=== PATIENT | female | born 1990 | race Caucasian/White ===

== ENCOUNTER 2021-11-18 19:30 | Inpatient (IN) | payer OTHER ==
[2021-11-18] MEDS ORDERED: DINOPROSTONE 10 MG VAGINAL SUPPOSITORY VG ONE (20:20)
[2021-11-18] MEDS: DEXTROSE 5%-LACTATED RINGERS 1,000 ML IV SCH (23:00)
[2021-11-18 23:22] VITALS: BMI 34.0
[2021-11-19] MEDS ORDERED: OXYTOCIN 30 UNITS in 0.9% NS 30 UNIT/500 ML INFUS.BAG IVPB ONE (05:52)
[2021-11-19] MEDS ORDERED: OXYTOCIN 30 UNITS in 0.9% NS 30 UNIT/500 ML INFUS.BAG IVPB SCH (06:00)
[2021-11-19] MEDS: DEXTROSE 5%-LACTATED RINGERS 1,000 ML IV SCH ×2 (06:00→14:00)
[2021-11-19] MEDS ORDERED: CITRIC ACID/SODIUM CITRATE 30 ML UNIT-DOSE CUP PO ONE (14:59)
[2021-11-19] MEDS ORDERED: ELECTROLYTE-148 SOLN 1,000 ML IV SCH (15:00)
[2021-11-19] MEDS ORDERED: morphine SULFATE/PF 1 MG/2 ML (2cc Syringe - QUVA) ONE (15:09)
[2021-11-19] MEDS ORDERED: PROPOFOL 20 ML ONE ×2 (15:49)
[2021-11-19] MEDS ORDERED: ePHEDrine SULFATE 50 MG/1 ML AMPULE ONE (15:49)
[2021-11-19] MEDS ORDERED: METHYLERGONOVINE MALEATE 0.2 MG/1 ML AMP IM PRN (16:24)
[2021-11-19] MEDS ORDERED: FAMOTIDINE 20 MG TABLET PO PRN (16:33)
[2021-11-19] MEDS: OXYTOCIN 20 UNITS in 0.9% NS 20 UNIT/1,000 ML INFUS.BAG IV SCH (19:10)
[2021-11-19] MEDS: IBUPROFEN 600 MG TABLET (FP) PO SCH (22:28)
[2021-11-19] MEDS: SENNOSIDES/DOCUSATE COMBO (SENNA PLUS) TABLET (UD) PO PRN (22:31)
[2021-11-19] MEDS ORDERED: IBUPROFEN 600 MG TABLET (FP) PO SCH (23:00)
[2021-11-19] MEDS ORDERED: ACETAMINOPHEN 500 MG TABLET (FP) PO SCH (23:00)
[2021-11-19] MEDS: ACETAMINOPHEN 1000 MG/100 ML BAG IVPB SCH (23:40)
[2021-11-20] MEDS: OXYTOCIN 20 UNITS in 0.9% NS 20 UNIT/1,000 ML INFUS.BAG IV SCH (03:30)
[2021-11-20] MEDS: IBUPROFEN 600 MG TABLET (FP) PO SCH ×3 (04:52→16:54)
[2021-11-20] MEDS: ACETAMINOPHEN 1000 MG/100 ML BAG IVPB SCH ×2 (05:38→13:25)
[2021-11-20 09:24] LABS: BASO % 0.5 % (0-2.0); EOS % 1.1 % (0-4.5); HEMATOCRIT 31.5 % (32.4-45.2); HEMOGLOBIN 11.2 GM/dL (10.7-15.3); LYMPH % 17.1 % (8-40); MCH 31.5 pg (25.7-33.7); MCHC 35.6 g/dl (32.0-36.0); MEAN CELL VOLUME 88.5 fl (80-96); MONO % 7.2 % (3.8-10.2); NEUT % 74.1 % (42.8-82.8); PLATELET COUNT 107 10^3/uL (134-434); RBC 3.56 M/mm3 (3.60-5.2); WHITE BLOOD COUNT 7.9 K/mm3 (4.0-10.0)
[2021-11-20 09:46] LABS: BLOOD UREA NITROGEN 8.2 mg/dL (7-18)
[2021-11-20 09:49] LABS: CREATININE 0.4 mg/dL (0.55-1.3)
[2021-11-20 09:50] LABS: BILIRUBIN,TOTAL 0.6 mg/dL (0.2-1); TOT PROT 4.7 g/dl (6.4-8.2)
[2021-11-20 09:53] LABS: ALBUMIN 2.2 g/dl (3.4-5.0)
[2021-11-20] MEDS: PRENATAL VITAMINS W/ FOLIC ACID TABLET (FP) PO SCH (10:11)
[2021-11-20] MEDS ORDERED: BISACODYL 10 MG SUPP.RECT RC PRN (16:24)
[2021-11-20] MEDS ORDERED: IBUPROFEN 600 MG TABLET (FP) PO PRN (17:00)
[2021-11-20] MEDS: SIMETHICONE 80 MG TAB.CHEW (FP) PO PRN (20:45)
[2021-11-20] MEDS: SENNOSIDES/DOCUSATE COMBO (SENNA PLUS) TABLET (UD) PO PRN (20:45)
[2021-11-20] MEDS: IBUPROFEN 600 MG TABLET (FP) PO PRN (20:46)
[2021-11-21] MEDS ORDERED: ACETAMINOPHEN 500 MG TABLET (FP) PO PRN (00:01)
[2021-11-21] MEDS: IBUPROFEN 600 MG TABLET (FP) PO PRN ×2 (05:57→20:33)
[2021-11-21] MEDS: SIMETHICONE 80 MG TAB.CHEW (FP) PO PRN ×3 (05:58→20:33)
[2021-11-21] MEDS: PRENATAL VITAMINS W/ FOLIC ACID TABLET (FP) PO SCH (09:33)
[2021-11-21] MEDS: oxyCODONE HCL 5 MG TABLET PO PRN ×3 (12:54→22:29)
[2021-11-21] MEDS: SENNOSIDES/DOCUSATE COMBO (SENNA PLUS) TABLET (UD) PO PRN (22:29)
[2021-11-22] MEDS: IBUPROFEN 600 MG TABLET (FP) PO PRN (05:46)
[2021-11-22] MEDS: PRENATAL VITAMINS W/ FOLIC ACID TABLET (FP) PO SCH (09:32)
[2021-11-22 09:43] LABS: BASO % 0.4 % (0-2.0); HEMATOCRIT 29.8 % (32.4-45.2); HEMOGLOBIN 10.5 GM/dL (10.7-15.3); LYMPH % 6.3 % (8-40); MCH 31.4 pg (25.7-33.7); MCHC 35.2 g/dl (32.0-36.0); MEAN CELL VOLUME 89.2 fl (80-96); MEAN PLT VOLUME 9.1 fl (7.5-11.1); MONO % 7.5 % (3.8-10.2); NEUT % 84.8 % (42.8-82.8); PLATELET COUNT 95 10^3/uL (134-434); RBC 3.34 M/mm3 (3.60-5.2); RDW 13.4 % (11.6-15.6); WHITE BLOOD COUNT 5.2 K/mm3 (4.0-10.0)
[2021-11-22 10:55] VITALS: BP 99/62; PULSE 88; TEMP 98.2
== END 2021-11-22 11:45 | disposition home or self-care (01) | DRG 540 ==
LOC: JLDR 19:30 → J3W 11-19 18:02
PROVIDERS: ADMIT Specialist; ATTEND Specialist
PROC: 10D00Z1 Extraction of Products of Conception, Low, Open Approach (ICD-10-PCS; principal; 2021-11-18)
DX: O48.0 Post-term pregnancy (principal); Z37.0 Single live birth; O62.2 Other uterine inertia; O69.89X0 Labor and delivery complicated by other cord complications, not applicable or unspecified; Z3A.40 40 weeks gestation of pregnancy
CPT/HCPCS: 36415; 80053; 85025; 85027; 85461; 85610; 85730; 86780; 86850; 86900; 86901; 86999; 87389; 88307-TC; C9803-CS; U0003; U0005